=== PATIENT | male | born 2000 | race African-American/Black ===

== ENCOUNTER 2025-02-27 12:30 | Emergency (ER) | payer OTHER ==
[~2025-02-27] VITALS: Ht 185.4 cm; Wt 77.3 kg
[2025-02-27 20:01] VITALS: BP 147/88; TEMP 97.9; O2SAT 99
== END 2025-02-27 20:08 | disposition home or self-care (01) ==
LOC: M ED 14:01
DX: M54.50 Low back pain, unspecified (principal)

== ENCOUNTER → 2025-03-31 | Outpatient (CLI) | payer OTHER ==
[2025-03-31 12:44] LABS: SEMEN APPEARANCE OPAQUE (OPAQUE); SEMEN VISCOSITY VISCOUS (LIQUID); SEMEN VOLUME 1.2 ml (2.0-5.0); SPERM CONCENTRATION 46.7 M/ml (>=15.0); TOTAL PROGRESSIVE SPERM 32.4 M/Ejac.; WBC CONCENTRATION >1 M/ml (<=1 M/ml)
[2025-03-31 13:58] LABS: LUTEINIZING HORMONE 2.1 mIU/ML (1.5-9.3); TESTOSTERONE 183.0 NG/DL (241-827)
== END ==
LOC: M LAB 11:22
PROVIDERS: ATTEND Urology
DX: N46.9 Male infertility, unspecified (principal)

== ENCOUNTER → 2025-04-09 | Outpatient (CLI) | payer OTHER | LOC: M RAD 13:02 | PROVIDERS: ATTEND Urology | DX: N46.9 Male infertility, unspecified (principal); I86.1 Scrotal varices ==

== ENCOUNTER → 2025-05-12 | Outpatient (CLI) | payer OTHER ==
[2025-05-12 08:27] LABS: APPEARANCE, URINE CLEAR (CLEAR); BACTERIA, URINE AUTO NEGATIVE (NEGATIVE); BILIRUBIN, URINE AUTO NEGATIVE (NEGATIVE); BLOOD, URINE BLOOD NEGATIVE (NEGATIVE); GLUCOSE, URINE (UA) AUTO NEGATIVE (NEGATIVE); KETONE, URINE AUTO NEGATIVE (NEGATIVE); LEUKOCYTE ESTERASE, URINE AUTO NEGATIVE (NEGATIVE); MUCUS, URINE SMALL (NEGATIVE); NITRITE, URINE AUTO NEGATIVE (NEGATIVE); PROTEIN, URINE AUTO NEGATIVE (NEGATIVE); RBC, URINE AUTO 0 /HPF (0-3); SPECIFIC GRAVITY URINE AUTO 1.020 (1.002-1.035); SQUAMOUS EPITHELIAL CELL UR AU 0 /HPF (0-6); UROBILINOGEN, URINE AUTO 0.2 mg/dL (0.0-2.0); WBC, URINE AUTO 0 /HPF (0-3)
== END ==
LOC: M LAB 07:16
PROVIDERS: ATTEND Urology
DX: E29.1 Testicular hypofunction (principal)